=== PATIENT | female | born 1955 | race Hispanic/Latino ===

== ENCOUNTER 2016-06-04 08:43 | Emergency (ER) | payer OTHER ==
[2016-06-04] MEDS ORDERED: Albuterol 0.083% Inhal Sol (2.5 mg/3 mL) UD ONE (09:25)
[2016-06-04] MEDS ORDERED: Albuterol 0.083% Inhal Sol (2.5 mg/3 mL) UD INH STA (09:42)
--- NOTE | 2016-06-04 09:55 | ED PDOC ---
HPI: SOB/CHF/COPD Time Seen by Provider: 06/04/16 08:57 Chief Complaint (Nursing): Shortness Of Breath History Per: Patient History/Exam Limitations: no limitations Onset/Duration Of Symptoms: Other (Prior to arrival) Current Symptoms Are (Timing): Still Present Additional Complaint(s): 61-year-old female, PMHx includes Hypertension, presents to the emergency department with complaints of shortness of breath that he developed while walking to work this morning. Patient denies chest pain, fever, cough, recent travel, leg pain/swelling, or any other associated symptoms. No other complaints at this time. Past Medical History Reviewed: Historical Data, Nursing Documentation, Vital Signs Vital Signs: Last Vital Signs Temp 98.0 F 06/04/16 10:12 Pulse 79 06/04/16 10:12 Resp 16 06/04/16 10:12 BP 129/73 06/04/16 10:12 Pulse Ox 97 06/04/16 10:12 - Medical History PMH: Anxiety, HTN, Pneumonia - Surgical History Surgical History: Endoscopy (regular upper GI endoscopies, last one was yesterday) - Family History Family History: States: Unknown Family Hx - Home Medications Home Medications: Ambulatory Orders Medication Instructions Recorded Albuterol HFA [Ventolin HFA 90 2 puff IH Q4H #1 puff 06/04/16 mcg/actuation (8 g)] Alprazolam [Xanax] 0.5 mg PO DAILY 06/04/16 Azithromycin [Zithromax] 250 mg PO DAILY #6 tab 06/04/16 - Allergies Allergies/Adverse Reactions: Allergies Allergy/AdvReac Type Severity Reaction Status Date / Time No Known Allergies Allergy Verified 11/18/15 23:08 Review of Systems ROS Statement: Except As Marked, All Systems Reviewed And Found Negative Constitutional: Negative for: Fever, Chills Cardiovascular: Negative for: Chest Pain Respiratory: Positive for: Shortness of Breath, SOB with Exertion Gastrointestinal: Negative for: Nausea, Vomiting Musculoskeletal: Negative for: Neck Pain, Back Pain Skin: Negative for: Rash Neurological: Negative for: Weakness, Numbness, Headache, Dizziness Physical Exam - Reviewed Nursing Documentation Reviewed: Yes Vital Signs Reviewed: Yes - Physical Exam Appears: Positive for: Non-toxic, No Acute Distress Head Exam: Positive for: ATRAUMATIC, NORMOCEPHALIC Skin: Positive for: Warm, Dry. Negative for: Rash Eye Exam: Positive for: Normal appearance Neck: Positive for: Painless ROM Cardiovascular/Chest: Positive for: Regular Rate, Rhythm Respiratory: Positive for: Rhonchi (scattered). Negative for: Accessory Muscle Use, Wheezing, Respiratory Distress Gastrointestinal/Abdominal: Positive for: Soft. Negative for: Tenderness Extremity: Positive for: Normal ROM. Negative for: Pedal Edema, Calf Tenderness , Swelling Neurologic/Psych: Positive for: Alert, Oriented - ECG O2 Sat by Pulse Oximetry: 96 Medical Decision Making Medical Decision Making: Impression: Shortness of breath Plan: * EKG * Chest X-Ray * Albuterol * Peak Flow * Reassess and Disposition EKG Viewed, ordered and Interpreted by ED Physician Rate 85bpm Rhythm NSR Interpret No acute ST/T wave changes Scribe Attestation: Documented by Samina Connelly acting as a scribe for Anmol Quinonez MD. Provider Attestation: All medical record entries made by the Scribe were at my direction and personally dictated by me. I have reviewed the chart and agree that the record accurately reflects my personal performance of the history, physical exam, medical decision making, and the department course for this patient. I have also personally directed, reviewed, and agree with the discharge instructions and disposition. Disposition - Clinical Impression Clinical Impression: Bronchitis - Patient ED Disposition Is Patient to be Admitted: No Counseled Patient/Family Regarding: Studies Performed, Diagnosis, Need For Followup, Rx Given - Disposition [facility]errals: [facility] [Outside] Disposition: Routine/Home Disposition Time: 10:56 Condition: FAIR Prescriptions: Albuterol HFA [Ventolin HFA 90 mcg/actuation (8 g)] 2 puff IH Q4H #1 puff Azithromycin [Zithromax] 250 mg PO DAILY #6 tab Instructions: Bronchospasm (ED), Acute Bronchitis (ED)
[2016-06-04 10:12] VITALS: BP 129/73; PULSE 79; RESP 16; TEMP 98
[2016-06-04 10:58] VITALS: O2SAT 96
--- NOTE | 2016-06-04 11:14 | RAD ---
HISTORY: Shortness of breath COMPARISON: 03/19/2015 TECHNIQUE: Chest PA and lateral FINDINGS: LUNGS: The lungs are hyperinflated and there is peribronchial thickening with chronic changes in both lungs. There is bibasilar atelectasis. There is no lobar pneumonia. PLEURA: No significant pleural effusion identified. No pneumothorax apparent. CARDIOVASCULAR: Normal. OSSEOUS STRUCTURES: No significant abnormalities. VISUALIZED UPPER ABDOMEN: Normal. OTHER FINDINGS: None. IMPRESSION: No active pulmonary disease. COPD
--- NOTE | 2016-06-05 14:00 | CARD ---
APPROVED REPORT EKG Measurement Heart [id number] <Conclusion> Normal sinus rhythm Normal ECG
== END 2016-06-04 11:25 | disposition home or self-care (01) ==
LOC: H.ER 08:43
DX: J40 Bronchitis, not specified as acute or chronic (principal); I10 Essential (primary) hypertension

== ENCOUNTER 2017-05-22 16:09 | Emergency (ER) | payer OTHER ==
[2017-05-22 16:27] VITALS: BP 119/67; PULSE 78; RESP 16; TEMP 97.6; O2SAT 95
[2017-05-22] MEDS ORDERED: Naproxen 500 MG TAB PO STA (18:00)
[2017-05-22] MEDS ORDERED: Naproxen 500 MG TAB PO ONE (18:08)
--- NOTE | 2017-05-22 18:17 | ED PDOC ---
Lower Extremity Pain/Injury Time Seen by Provider: 05/22/17 16:32 Chief Complaint (Nursing): Lower Extremity Problem/Injury Chief Complaint (Provider): Left knee pain History Per: Patient History/Exam Limitations: no limitations Onset/Duration Of Symptoms: Days (x3) Current Symptoms Are (Timing): Still Present Additional Complaint(s): Patient is a 62 y/o female who presents complaining of left knee and calf pain, progressively worsening since Saturday. Pain worsens with movement and weight bearing but resolves when sitting. No fall or injury. Patient reports having a similar episode a few months ago which resolved with Tylenol and muscle relaxers. States she is concerned about possibility of a DVT, prompting ED visit today. Otherwise: (-) chest pain, (-) SOB, (-) cough, (-) lower leg swelling, (-) nausea, (-) vomiting, (-) recent surgery or prolonged immobility. Patient denies history of diabetes, hypertension, or cardiac disease. PMD: Dr. Streeter Past Medical History Reviewed: Historical Data, Nursing Documentation, Vital Signs Vital Signs: Last Vital Signs Temp 97.6 F 05/22/17 16:22 Pulse 78 05/22/17 16:22 Resp 16 05/22/17 16:22 BP 119/67 05/22/17 16:22 Pulse Ox 95 05/22/17 16:22 - Medical History PMH: Anxiety, Pneumonia Denies: Diabetes, HTN - Surgical History Surgical History: Endoscopy (regular upper GI endoscopies, last one was yesterday) Other surgeries: Lap band surgery - Family History Family History: States: Unknown Family Hx - Social History Current smoker - smoking cessation education provided: No Alcohol: Social Drugs: Denies - Home Medications Home Medications: Ambulatory Orders Medication Instructions Recorded Albuterol HFA [Ventolin HFA 90 2 puff IH Q4H #1 puff 06/04/16 mcg/actuation (8 g)] Alprazolam [Xanax] 0.5 mg PO DAILY 06/04/16 Azithromycin [Zithromax] 250 mg PO DAILY #6 tab 06/04/16 Meloxicam [Mobic] 15 mg PO DAILY #14 tab 05/22/17 - Allergies Allergies/Adverse Reactions: Allergies Allergy/AdvReac Type Severity Reaction Status Date / Time No Known Allergies Allergy Verified 05/22/17 16:22 Review of Systems ROS Statement: Except As Marked, All Systems Reviewed And Found Negative Cardiovascular: Negative for: Chest Pain Respiratory: Negative for: Cough, Shortness of Breath Gastrointestinal: Negative for: Nausea, Vomiting Musculoskeletal: Positive for: Other (left knee and calf pain) Neurological: Negative for: Weakness Physical Exam - Reviewed Nursing Documentation Reviewed: Yes Vital Signs Reviewed: Yes - Physical Exam Comments: GENERAL APPEARANCE: Patient is awake, alert, oriented x 3, in no acute distress. Ambulatory in ED with a limp. SKIN: Warm, dry; (-) cyanosis. RESPIRATORY: Lungs clear to auscultation bilaterally (-) rales (-) rhonchi (-) wheezing CARDIAC: (-) murmur LOWER EXTREMITY: Left knee: (+) tenderness to the left posterior knee/proximal, posterior calf (-) effusion (-) overlying skin changes; ROM intact with pain with extension of left knee; (-) pedal edema; (-) calf swelling (-) palpable cord. Full ROM of ankle. (-) Instability on valgus or varus stress; (-) anterior and posterior draw signs. CARDIOVASCULAR: (+) 2+ distal pulses. NEUROLOGIC: (+) distal sensation bilaterally. - ECG O2 Sat by Pulse Oximetry: 95 (RA) Pulse Ox Interpretation: Normal Medical Decision Making Medical Decision Making: Initial Impression: Acute knee pain, most likely arthritis Time: 18:00 Initial Plan: * Naproxen 500 mg PO * Tramadol 50 mg PO (Patient states she is not driving home) * X-ray left knee * Re-eval 19:15 D/w patient the risk factors for DVT XR L KNEE: no fracture, no dislocation, as read by PA. Patient advised that official radiology read of XR is still pending and will call the patient if there is any discrepancy within 24 hours. 19:28 Ordered US doppler of left lower extremity to rule out DVT. 21:30 Ultrasound reviewed and results below: DUPLEX LOWER EXTRM VEIN LEFT Exam Date: 05/22/17 This imaging exam was performed at [facility] EXAM: US Duplex Left Lower Extremity Veins CLINICAL HISTORY: 62 years old, female; Pain; Leg, lower; Left; Additional info: Calf pain TECHNIQUE: Real-time ultrasound scan of the veins of the left lower extremity with color Doppler flow, spectral waveform analysis and compression. COMPARISON: No relevant prior studies available. FINDINGS: Deep veins: Normal color and spectral Doppler flow. Normal compressibility. No deep vein thrombosis from common femoral to popliteal vein. Superficial veins: No thrombosis. Soft tissues: No popliteal cyst. IMPRESSION: 1. No evidence of DVT within LEFT lower extremity. Dictated By: Paul Crabtree MD Dictated Date/Time: 05/22/17 21:45 On re-evaluation, patient reports improvement of symptoms, ambulatory in ED with resolution of limping. Patient remains AAOx3, in no acute distress. On exam , neck is supple, lungs CTA, cardiac RRR, abdomen is soft and non-tender, neuro exam shows no focal findings. VSS. Diagnostic results d/w the patient in great detail. Dx of acute knee pain, likely DJD d/w the patient. Based on history, exam and diagnostic results plan will be for discharge and outpatient follow up. RICE encouraged. Weight loss advised. Advised to follow up with primary care physician/ortho(referral provided) in 1- 2 days without fail. Advised to take medication as prescribed. Return to the emergency room at any time for any new or worsening symptoms. Patient states he/she fully agrees with and understands discharge instructions. States that he/she agrees with the plan and disposition. Verbalized and repeated discharge instructions and plan. I have given the patient opportunity to ask any additional questions. Scribe Attestation: Documented by Mirtha Kaufman, acting as a scribe for Dodie Garcia PA-C Provider Scribe Attestation: All medical record entries made by the Scribe were at my direction and personally dictated by me. I have reviewed the chart and agree that the record accurately reflects my personal performance of the history, physical exam, medical decision making, and the department course for this patient. I have also personally directed, reviewed, and agree with the discharge instructions and disposition. Disposition - Clinical Impression Clinical Impression: Knee pain, acute, Osteoarthritis of knee, unilateral - Patient ED Disposition Is Patient to be Admitted: No Counseled Patient/Family Regarding: Studies Performed, Diagnosis, Need For Followup, Rx Given - Disposition Referrals: Tomás Foster III, MD [Staff Provider] - Disposition: Routine/Home Disposition Time: 21:43 Condition: STABLE Prescriptions: Meloxicam [Mobic] 15 mg PO DAILY #14 tab Instructions: Osteoarthritis, Knee Pain Forms: [facility] (Divehi) Print Language: WOLOF - POA Present On Arrival: None
--- NOTE | 2017-05-22 21:11 | US ---
EXAM: US Duplex Left Lower Extremity Veins CLINICAL HISTORY: 62 years old, female; Pain; Leg, lower; Left; Additional info: Calf pain TECHNIQUE: Real-time ultrasound scan of the veins of the left lower extremity with color Doppler flow, spectral waveform analysis and compression. COMPARISON: No relevant prior studies available. FINDINGS: Deep veins: Normal color and spectral Doppler flow. Normal compressibility. No deep vein thrombosis from common femoral to popliteal vein. Superficial veins: No thrombosis. Soft tissues: No popliteal cyst. IMPRESSION: 1. No evidence of DVT within LEFT lower extremity.
--- NOTE | 2017-05-23 08:11 | RAD ---
PROCEDURE: Left Knee Radiographs. HISTORY: Pain. COMPARISON: None. FINDINGS: BONES: No acute fracture or destructive bony lesion identified. JOINTS: Joint space narrowing the medial femorotibial compartment is identified as well as at the patellofemoral joint with both also exhibiting limited osteophyte development. JOINT EFFUSION: None. OTHER FINDINGS: None. IMPRESSION: Limited degenerative joint disease, bicompartmental. No acute fracture, subluxation or dislocation identified.
== END 2017-05-22 21:57 | disposition home or self-care (01) ==
LOC: H.ER 16:09
DX: M17.12 Unilateral primary osteoarthritis, left knee (principal); F41.9 Anxiety disorder, unspecified